=== PATIENT | male | born 1980 | race Caucasian/White ===

== ENCOUNTER 2019-01-01 13:59 | Emergency (ER) | payer SELFPAY ==
[~2019-01-01] VITALS: Ht 167.6 cm; Wt 98.9 kg
[2019-01-01 14:20] VITALS: BP 128/84
--- NOTE | 2019-01-01 14:39 | NUR ---
PATIENT AMBULATED TO BED 3
--- NOTE | 2019-01-01 14:42 | NUR ---
38M BIB SELF W/ C/O RT THROBBING WRIST PAIN 8/10 X 3 DAYS WORSE ON MOVEMENT. DECREASED WRIST ROM. TOOK 600 MG MOTRIN AT 0600 W/O RELIEF. DOES FRAMING AT WORK. DENIES INJURY. NO SWELLING NOTED. SKIN INTACT. PULSES EQUAL BILATERALLY. HX: DENIES
--- NOTE | 2019-01-01 15:04 | NUR ---
BRAYAN OLIVARES EVALUATING PATIENT AT BEDSIDE
[2019-01-01] MEDS ORDERED: KETOROLAC 30 MG/ML VIAL IM ONE (15:10)
[2019-01-01] MEDS ORDERED: DEXAMETHASONE 10 MG/ML VIAL IM ONE (15:10)
--- NOTE | 2019-01-01 15:35 | NUR ---
EMT AT BEDSIDE FOR SPLINT
--- NOTE | 2019-01-01 15:39 | NUR ---
APPLIED VELCRO WRIST SPLINT TO RIGHT WRIST WITHOUT ANY ISSUES
--- NOTE | 2019-01-01 15:43 | NUR ---
Patient discharged with v/s stable. Written and verbal after care instructions given and explained. Patient alert, oriented and verbalized understanding of instructions. Ambulatory with steady gait. All questions addressed prior to discharge. ID band removed. Patient advised to follow up with PMD. Rx of NAPROSYN AND PREDNISONE given. Patient educated on indication of medication including possible reaction and side effects. Opportunity to ask questions provided and answered.
[2019-01-01 15:45] VITALS: BP 131/78
== END 2019-01-01 15:43 | disposition home or self-care (01) ==
LOC: MED 13:59
DX: G56.01 Carpal tunnel syndrome, right upper limb (principal)
CPT/HCPCS: 29125; 96372; 99283; J1100; J1885

== ENCOUNTER 2019-04-21 22:36 | Emergency (ER) | payer MEDICAID ==
[~2019-04-21] VITALS: Ht 167.6 cm; Wt 113.4 kg
--- NOTE | 2019-04-21 22:38 | NUR ---
Pt ambulated to bed 3.
[2019-04-21 22:49] VITALS: BP 165/102
--- NOTE | 2019-04-21 22:54 | NUR ---
PATIENT LAYING IN BED, HOOKED UP TO MONITOR. VSS ON MONITOR. PATIENT ASSESSMENT COMPLETED. WILL MONITOR CLOSELY. AT BEDSIDE.
[2019-04-21] MEDS ORDERED: ASPIRIN 325 MG TAB PO ONE (23:00)
[2019-04-21] MEDS ORDERED: KETOROLAC 30 MG/ML VIAL IM ONE (23:00)
--- NOTE | 2019-04-21 23:15 | NUR ---
LAB AT BEDSIDE.
[2019-04-21 23:23] LABS: BASOPHILS % (AUTO) 0.4 % (0.0-2.0); EOSINOPHILS # (AUTO) 0.1 K/uL (0-0.4); EOSINOPHILS % (AUTO) 1.6 % (0.0-4.0); HEMOGLOBIN 13.6 g/dL (12.0-18.0); LYMPHOCYTES # (AUTO) 2.6 K/uL (2.0-11.5); LYMPHOCYTES % (AUTO) 38.9 % (20.5-51.1); MEAN CORPUSCULAR HEMOGLOBIN 31 pg (27-31); MEAN CORPUSCULAR HGB CONC 34 g/dL (33-37); MEAN CORPUSCULAR VOLUME 91.7 fL (80-94); MONOCYTES # (AUTO) 0.6 K/uL (0.8-1.0); NEUTROPHILS # (AUTO) 3.3 K/uL (1.8-7.7); NEUTROPHILS % (AUTO) 50.1 % (42.2-75.2); PLATELET COUNT (AUTO) 222 K/uL (140-450); RED BLOOD CELL COUNT(AUTO) 4.36 MIL/uL (4.20-6.10); RED CELL DISTRIBUTION WIDTH 13.1 % (11.6-13.7); WHITE BLOOD COUNT (AUTO) 6.6 K/uL (4.8-10.8)
[2019-04-21 23:55] LABS: ANION GAP 12.3 (8-16); CARBON DIOXIDE 32.3 mmol/L (21-32); POTASSIUM 3.6 mmol/L (3.5-5.1)
[2019-04-21 23:56] LABS: CREATININE 1.2 mg/dL (0.7-1.3); TOTAL BILIRUBIN 0.3 mg/dL (0.0-1.0)
[2019-04-22 00:14] LABS: CREATINE KINASE MB 2.8 ng/mL (0-3.6)
--- NOTE | 2019-04-22 00:37 | NUR ---
PATIENT AMB TO RESTROOM. PATIENT STATES PAIN HAS IMPROVED.
[2019-04-22 03:03] VITALS: BP 139/98
== END 2019-04-22 03:03 | disposition home or self-care (01) ==
LOC: MED 22:36
DX: R07.9 Chest pain, unspecified (principal)
CPT/HCPCS: 36415; 71045; 80053; 82550; 82553; 83690; 84484; 85025; 93005; 96372; 99284; J1885; Q0092

== ENCOUNTER 2019-10-12 08:38 | Emergency (ER) | payer MEDICAID ==
[~2019-10-12] VITALS: Ht 167.6 cm; Wt 104.3 kg
--- NOTE | 2019-10-12 08:40 | NUR ---
PATIENT TAKEN TO BED 7.
[2019-10-12 08:42] VITALS: BP 143/87
--- NOTE | 2019-10-12 08:50 | NUR ---
ELISE YOUNG AT BEDSIDE ASSESSING PT
--- NOTE | 2019-10-12 08:52 | NUR ---
39 yo male co right wrist pain since . according to pt, he has been here before and dxd with carpal tunnel. pt states that pain is 4/10 when he is not using it and 8/10 with movement. no swelling or bruising observed. pt states that he has also been having freq urination. pt is pre-diabetic and is not taking any rx meds at this time.
[2019-10-12] MEDS ORDERED: KETOROLAC 60 MG/2 ML VIAL IM ONE (09:00)
--- NOTE | 2019-10-12 09:04 | NUR ---
ACCUCHECK 118
[2019-10-12 09:51] VITALS: BP 137/82
== END 2019-10-12 09:47 | disposition home or self-care (01) ==
LOC: MED 08:38
DX: G56.01 Carpal tunnel syndrome, right upper limb (principal); N40.0 Benign prostatic hyperplasia without lower urinary tract symptoms
CPT/HCPCS: 29125; 81002; 82948; 96372; 99283; J1885

== ENCOUNTER 2019-11-26 10:27 | Emergency (ER) | payer MEDICAID ==
[~2019-11-26] VITALS: Ht 167.6 cm; Wt 104.3 kg
--- NOTE | 2019-11-26 10:44 | NUR ---
Pt ambulated to bed 06
[2019-11-26 10:50] VITALS: BP 141/64
--- NOTE | 2019-11-26 10:55 | NUR ---
C/O L FOOT PAIN X1 DAY. PAIN BEGAN IN L KNEE AND RADIATES DOWN TO L FOOT. PT DENIES INJURY. NO OBVIOUS DEFORMITY/SWELLING/REDNESS NOTED. CMS INTACT, < 2 SECOND CAP REFILL, DENIES NUMBNESS OR TINGLING. BED IN LOW POSITION, SIDE RAIL UP X1. PT AMBULATORY WITH CRUTCHES FROM HOME.
--- NOTE | 2019-11-26 10:56 | NUR ---
DR. SHELLEY AT BEDSIDE EVALUATING PT
[2019-11-26] MEDS ORDERED: KETOROLAC 30 MG/ML VIAL IM ONE (12:45)
[2019-11-26 12:55] VITALS: BP 136/71
--- NOTE | 2019-11-26 12:55 | NUR ---
Patient discharged with v/s stable. Written and verbal after care instructions given and explained. Patient alert, oriented and verbalized understanding of instructions. Ambulatory with steady gait. All questions addressed prior to discharge. ID band removed. Patient advised to follow up with PMD. Rx of IBUPROFEN & PREDNISONE given. Patient educated on indication of medication including possible reaction and side effects. Opportunity to ask questions provided and answered.
== END 2019-11-26 12:55 | disposition home or self-care (01) ==
LOC: MED 10:27
DX: M25.572 Pain in left ankle and joints of left foot (principal)
CPT/HCPCS: 73630; 96372; 99283; J1885

== ENCOUNTER 2020-01-23 18:05 | Emergency (ER) | payer MEDICAID ==
[~2020-01-23] VITALS: Ht 170.2 cm; Wt 96.2 kg
[2020-01-23 18:09] VITALS: BP 163/109
--- NOTE | 2020-01-23 18:11 | NUR ---
PT AMBULATED TO BED 4.
--- NOTE | 2020-01-23 18:19 | NUR ---
PT C/O LOWER ABDOMINAL PAIN AND LEFT FLANK PAIN WITH NAUSEA AND VOMITING FOR 2 DAYS. CVAT POSITIVE ON LEFT FLANK AREA. SKIN IS PINK/WARM/DRY; AAOX4 WITH EVEN AND STEADY GAIT; HR EVEN AND REGULAR; PT DENIES ANY FEVER, CP, SOB, OR COUGH AT THIS TIME; PATIENT STATES PAIN OF 10/10 AT THIS TIME; VSS; PATIENT POSITIONED FOR COMFORT; HOB ELEVATED; BEDRAILS UP X1; BED DOWN. ER MD MADE AWARE OF PT STATUS.
[2020-01-23] MEDS ORDERED: NACL 0.9% 1,000 ML IV ONE (18:39)
[2020-01-23] MEDS ORDERED: ONDANSETRON 4 MG/2 ML VIAL IVP ONE (18:40)
[2020-01-23] MEDS ORDERED: MORPHINE SULFATE 4 MG/ML SYR IVP ONE (18:40)
[2020-01-23] MEDS ORDERED: KETOROLAC 30 MG/ML VIAL IVP ONE ×2 (18:40→20:15)
--- NOTE | 2020-01-23 18:52 | NUR ---
PT HAS BEEN TAKING TO CT SCAN VIA .
[2020-01-23 19:02] LABS: BASOPHILS % (AUTO) 0.5 % (0.0-2.0); EOSINOPHILS # (AUTO) 0.1 K/uL (0-0.4); HEMATOCRIT 40.8 % (36-52); HEMOGLOBIN 13.6 g/dL (12.0-18.0); LYMPHOCYTES % (AUTO) 39.4 % (20.5-51.1); MEAN CORPUSCULAR HEMOGLOBIN 31 pg (27-31); MEAN CORPUSCULAR HGB CONC 33 g/dL (33-37); MEAN CORPUSCULAR VOLUME 92.3 fL (80-94); MONOCYTES # (AUTO) 0.7 K/uL (0.8-1.0); MONOCYTES % (AUTO) 8.8 % (1.7-9.3); NEUTROPHILS # (AUTO) 3.9 K/uL (1.8-7.7); NEUTROPHILS % (AUTO) 50.3 % (42.2-75.2); PLATELET COUNT (AUTO) 231 K/uL (140-450); RED BLOOD CELL COUNT(AUTO) 4.42 MIL/uL (4.20-6.10); RED CELL DISTRIBUTION WIDTH 13.2 % (11.6-13.7); WHITE BLOOD COUNT (AUTO) 7.7 K/uL (4.8-10.8)
[2020-01-23 19:04] LABS: APPEARANCE,URINE CLEAR (CLEAR); BILIRUBIN,URINE NEGATIVE (NEGATIVE); BLOOD, URINE 2+ (NEGATIVE); COLOR,URINE YELLOW (YELLOW); LEUKOCYTE ESTERASE ,URINE NEGATIVE (NEGATIVE); NITRITE, URINE NEGATIVE (NEGATIVE); PH,URINE 5.5 (5.0-9.0); UGLUCOSE NEGATIVE (NEGATIVE)
--- NOTE | 2020-01-23 19:13 | NUR ---
PT REQUESTING MORE COMFORTABLY AT THIS TIME, STATES PAIN LEVELIS GOOD 4/10. PT REMAINS ON BEDSIDE MONITOR.
--- NOTE | 2020-01-23 19:13 | NUR ---
REPORT RECEIVED FROM NERIS ROLLE
--- NOTE | 2020-01-23 19:13 | NUR ---
REPORT GAVE TO AQUILINO MAGANA.
--- NOTE | 2020-01-23 19:14 | NUR ---
MD LOZOYA NOTIFIED OF BLOOD PRESSURE OF 149/101. NO NEW ORDERS RECEIVED
[2020-01-23 19:25] LABS: ALBUMIN 4.4 g/dL (3.4-5.0); ANION GAP 16.1 (8-16); CREATININE 1.4 mg/dL (0.6-1.3); POTASSIUM 3.1 mmol/L (3.5-5.1); TOTAL BILIRUBIN 0.3 mg/dL (0.0-1.0)
[2020-01-23 19:27] LABS: RBC,URINE 11-20 (MOD) /HPF (0-5); WBC,URINE NONE SEEN /HPF (0-5)
[2020-01-23] MEDS ORDERED: POTASSIUM CHLORIDE 10 MEQ TABER PO ONE (19:45)
--- NOTE | 2020-01-23 20:09 | NUR ---
MD LOZOYA AT BEDSIDE
[2020-01-23] MEDS ORDERED: HYDROcodone/APAP 5/325 MG 1 TAB TAB PO ONE (20:15)
--- NOTE | 2020-01-23 20:30 | NUR ---
Patient discharged with v/s stable. Written and verbal after care instructions given and explained. Patient alert, oriented and verbalized understanding of instructions. Ambulatory with steady gait. All questions addressed prior to discharge. ID band removed. Patient advised to follow up with PMD. Rx of NORCO, NAPRASYN, FLOMAX given. Patient educated on indication of medication including possible reaction and side effects. Opportunity to ask questions provided and answered.
[2020-01-23 20:42] VITALS: BP 154/101
== END 2020-01-23 20:30 | disposition home or self-care (01) ==
LOC: MED 18:05
DX: N20.1 Calculus of ureter (principal); E87.6 Hypokalemia; E11.9 Type 2 diabetes mellitus without complications
CPT/HCPCS: 36415; 74176; 80053; 81001; 83690; 85025; 96361; 96374; 96375; 96376; 99284; J1885; J2270; J2405; J7030

== ENCOUNTER 2021-03-27 07:27 | Emergency (ER) | payer MEDICAID ==
[~2021-03-27] VITALS: Ht 167.6 cm; Wt 99.8 kg
[2021-03-27 07:29] VITALS: BP 156/91
--- NOTE | 2021-03-27 07:35 | NUR ---
Patient ambulated to bed 07 with steady/even gait.
--- NOTE | 2021-03-27 07:35 | NUR ---
40 y/o M BIB self c/o low back pain x 3 days. Patient A&Ox4, ambulatory, states at work he bent down to grab wood supplies, stood back up and felt pain to low back. Patient reports 8/10, pressure/intermittent, non-radiating pain that worsens when sitting or straining during bowel movements. Pt reports standing and ambulating lessens pain. Denies abdominal pain, dysuria, urinary symptoms, numbness/tingling, loss of sensation. States last BM today normal. Denies meds prior to arrival. Bed locked in lowest position, side rails x 1, call light in reach. PMH/Meds/Sx: Denies NKA
--- NOTE | 2021-03-27 07:57 | NUR ---
Dr. Erickson at bedside evaluating patient.
[2021-03-27] MEDS ORDERED: KETOROLAC 60 MG/2 ML VIAL IM ONE (08:05)
--- NOTE | 2021-03-27 08:12 | NUR ---
Patient transported to [facility] by WC
--- NOTE | 2021-03-27 08:24 | NUR ---
Pt returned from RAD by WC.
--- NOTE | 2021-03-27 08:32 | NUR ---
Patient states + relief to low back pain; rates pain 7/10 at this time. All pt needs met.
[2021-03-27] MEDS ORDERED: CYCL-711 PO (09:14)
[2021-03-27] MEDS ORDERED: NAPR-54 PO (09:14)
--- NOTE | 2021-03-27 09:17 | NUR ---
Patient discharged with v/s stable. Written and verbal after care instructions given and explained. Patient alert, oriented and verbalized understanding of instructions. Ambulatory with steady gait. All questions addressed prior to discharge. ID band removed. Patient advised to follow up with PMD. Rx of Naproxen, Flexeril given. Patient educated on indication of medication including possible reaction and side effects. Opportunity to ask questions provided and answered.
== END 2021-03-27 09:17 | disposition home or self-care (01) ==
LOC: MED 07:27
DX: M54.50 Low back pain, unspecified (principal); E11.9 Type 2 diabetes mellitus without complications; Z79.899 Other long term (current) drug therapy; Z79.1 Long term (current) use of non-steroidal anti-inflammatories (NSAID)
CPT/HCPCS: 72100; 96372; 99283; J1885

== ENCOUNTER 2021-04-01 16:30 | Emergency (ER) | payer MEDICAID ==
[~2021-04-01] VITALS: Ht 167.6 cm; Wt 104.3 kg
[~2021-04-01 16:30] MED LIST: CYCL-711 PO; NAPR-54 PO
[2021-04-01 16:40] VITALS: BP 177/96
--- NOTE | 2021-04-01 16:44 | NUR ---
PT AMBULATED TO BED
--- NOTE | 2021-04-01 17:02 | NUR ---
40 Y/O MALE C/O LOW BACK PAIN 01/14 DESCRIBES SHARP NON-RADIATING X1WEEK. PT STATES HE WAS RECENTLY SEEN IN ER X1WEEK AND PRESCRIBED NAPROXEN AND FLEXERIL WITH NO RELIEF. DENIES ANY RECENT INJURY OR FALL. DENIES FEVER/CHILLS. DENIES N/V/D. DENIES PMH NKA
--- NOTE | 2021-04-01 17:09 | NUR ---
ELISE RICHARDSONTO AT PT BEDSIDE FOR FURTHER EVALUATION.
[2021-04-01] MEDS ORDERED: KETOROLAC 30 MG/ML VIAL IM ONE (17:15)
[2021-04-01] MEDS ORDERED: HYDROcodone/APAP 5/325 MG 1 TAB TAB PO ONE (17:15)
[2021-04-01] MEDS ORDERED: IBUP-2213 PO (18:09)
[2021-04-01] MEDS ORDERED: METH4TAB27 PO (18:09)
[2021-04-01] MEDS ORDERED: ACET-8386 PO (18:09)
[2021-04-01 18:15] VITALS: BP 177/96
--- NOTE | 2021-04-01 18:16 | NUR ---
Patient discharged with v/s stable. Written and verbal after care instructions given LOW BACK SPRAIN OR STRAIN REHAB and explained. Patient alert, oriented and verbalized understanding of instructions. Ambulatory with steady gait. All questions addressed prior to discharge. ID band removed. Patient advised to follow up with PMD. Rx of NORCO, IBUPROFEN, AND METHYLPRED-DP given. Patient educated on indication of medication including possible reaction and side effects. Opportunity to ask questions provided and answered.
== END 2021-04-01 18:16 | disposition home or self-care (01) ==
LOC: MED 16:30
DX: S39.012A Strain of muscle, fascia and tendon of lower back, initial encounter (principal); M54.10 Radiculopathy, site unspecified; R03.0 Elevated blood-pressure reading, without diagnosis of hypertension; Z79.899 Other long term (current) drug therapy; X58.XXXA Exposure to other specified factors, initial encounter; Y93.89 Activity, other specified; Y92.89 Other specified places as the place of occurrence of the external cause; Y99.8 Other external cause status
CPT/HCPCS: 81002; 96372; 99283; J1885

== ENCOUNTER 2021-07-10 18:11 | Emergency (ER) | payer MEDICAID ==
[~2021-07-10] VITALS: Ht 170.2 cm; Wt 101.6 kg
[~2021-07-10 18:11] MED LIST changes: +ACET-8386 PO; +IBUP-2213 PO; +METH4TAB27 PO
[2021-07-10 18:13] VITALS: BP 136/99
--- NOTE | 2021-07-10 18:16 | NUR ---
PT AMBULATED TO ER BED 8 WITH A STEADY GAIT.
--- NOTE | 2021-07-10 18:31 | NUR ---
PA TILLMAN AT BEDSIDE EVALUATING PT
[2021-07-10] MEDS ORDERED: KETOROLAC 30 MG/ML VIAL IM ONE (18:40)
--- NOTE | 2021-07-10 18:41 | NUR ---
41 Y/O M C/O SHARP R WRIST PAIN 10/10 FOR 2 DAYS THAT RADIATES TO HIS FINGERS. ALSO C/O R HAND FINGER NUMBNESS. PT HAD HX OF CARPAL TUNNEL. NKA. DENIES TRAUMA.
[2021-07-10] MEDS ORDERED: IBUP-2213 PO (18:48)
--- NOTE | 2021-07-10 19:23 | NUR ---
REPORT GIVEN TO ASMITA ROLLE.
[2021-07-10] MEDS ORDERED: TRAM50TA1 PO (19:30)
[2021-07-10 19:54] VITALS: BP 136/99
--- NOTE | 2021-07-10 19:54 | NUR ---
Patient discharged with v/s stable. Written and verbal after care instructions given and explained. Patient verbalized understanding. Ambulatory with steady gait. All questions addressed prior to discharge. Advised to follow up with PMD.
== END 2021-07-10 19:54 | disposition home or self-care (01) ==
LOC: MED 18:11
DX: M25.531 Pain in right wrist (principal); G89.29 Other chronic pain; R03.0 Elevated blood-pressure reading, without diagnosis of hypertension; Z79.899 Other long term (current) drug therapy
CPT/HCPCS: 29125; 96372; 99283; J1885

== ENCOUNTER 2021-07-18 20:14 | Emergency (ER) | payer MEDICAID ==
[~2021-07-18] VITALS: Ht 167.6 cm; Wt 103.9 kg
[~2021-07-18 20:14] MED LIST changes: +TRAM50TA1 PO
[2021-07-18 20:27] VITALS: BP 158/109
--- NOTE | 2021-07-18 20:30 | NUR ---
PT WALKED TO LOBBY
[2021-07-18] MEDS: KETOROLAC 30 MG/ML VIAL IM ONE (22:01)
[2021-07-18 22:44] VITALS: BP 158/109
== END 2021-07-18 22:47 | disposition home or self-care (01) ==
LOC: MED 20:14
DX: M25.531 Pain in right wrist (principal); G89.29 Other chronic pain
CPT/HCPCS: 96372; 99283; J1885

== ENCOUNTER 2022-02-19 10:05 | Emergency (ER) | payer MEDICAID ==
[~2022-02-19] VITALS: Ht 167.6 cm; Wt 104.8 kg
[2022-02-19 10:48] VITALS: BP 161/110
--- NOTE | 2022-02-19 10:53 | NUR ---
PT TO [facility]
[2022-02-19] MEDS ORDERED: IBUPROFEN 800 MG TAB PO ONE (12:35)
--- NOTE | 2022-02-19 12:46 | NUR ---
VELCRO THUMB SPICA APPLIED TO R THUMB/ HAND. + CMS. PT TOLERATED SPLINT. Addendum: 02/19/22 at 1256 by MEDFR SPLINT CHANGE TO VOLAR VELCRO APPLIED TO R WRIST. PT TOLERATED SPLINT. + CMS
[2022-02-19] MEDS ORDERED: KETOROLAC 30 MG/ML VIAL IM ONE (12:55)
[2022-02-19] MEDS ORDERED: IBUP-2218 PO (13:02)
[2022-02-19 13:19] VITALS: BP 161/110
== END 2022-02-19 13:19 | disposition home or self-care (01) ==
LOC: MED 10:05
DX: G56.01 Carpal tunnel syndrome, right upper limb (principal)
CPT/HCPCS: 29125; 73110; 96372; 99283; J1885

== ENCOUNTER 2022-04-12 08:05 | Emergency (ER) | payer MEDICAID ==
[~2022-04-12] VITALS: Ht 167.6 cm; Wt 108.0 kg
[~2022-04-12 08:05] MED LIST changes: +IBUP-2218 PO; +TRAM-748 PO; -TRAM50TA1 PO
[2022-04-12 08:09] VITALS: BP 153/110
[2022-04-12] MEDS ORDERED: IBUPROFEN 800 MG TAB PO ONE (08:25)
[2022-04-12] MEDS ORDERED: DOXY-690 PO (08:56)
[2022-04-12] MEDS ORDERED: NAPR-54 PO (08:56)
== END 2022-04-12 09:08 | disposition home or self-care (01) ==
LOC: MED 08:05
DX: L03.115 Cellulitis of right lower limb (principal); Z79.1 Long term (current) use of non-steroidal anti-inflammatories (NSAID); Z79.2 Long term (current) use of antibiotics; Z79.891 Long term (current) use of opiate analgesic; Z79.899 Other long term (current) drug therapy
CPT/HCPCS: 73630; 99283

== ENCOUNTER 2022-06-03 07:09 | Emergency (ER) | payer MEDICAID ==
[~2022-06-03] VITALS: Ht 172.7 cm; Wt 106.1 kg
[~2022-06-03 07:09] MED LIST changes: -ACET-8386 PO; +ACET-8905 PO; +DOXY-690 PO
[2022-06-03 07:28] VITALS: BP 146/95
[2022-06-03 08:05] LABS: BASOPHILS % (AUTO) 0.5 % (0.0-2.0); EOSINOPHILS # (AUTO) 0.2 K/uL (0-0.4); EOSINOPHILS % (AUTO) 2.9 % (0.0-4.0); HEMATOCRIT 40.3 % (36-52); HEMOGLOBIN 13.4 g/dL (12.0-18.0); LYMPHOCYTES # (AUTO) 1.5 K/uL (2.0-11.5); MEAN CORPUSCULAR HEMOGLOBIN 30 pg (27-31); MEAN CORPUSCULAR HGB CONC 33 g/dL (33-37); MEAN CORPUSCULAR VOLUME 90.3 fL (80-94); MONOCYTES # (AUTO) 0.7 K/uL (0.8-1.0); MONOCYTES % (AUTO) 11.3 % (1.7-9.3); NEUTROPHILS # (AUTO) 3.5 K/uL (1.8-7.7); NEUTROPHILS % (AUTO) 59.3 % (42.2-75.2); PLATELET COUNT (AUTO) 213 K/uL (140-450); RED BLOOD CELL COUNT(AUTO) 4.47 MIL/uL (4.20-6.10); RED CELL DISTRIBUTION WIDTH 13.7 % (11.6-13.7); WHITE BLOOD COUNT (AUTO) 5.8 K/uL (4.8-10.8)
--- NOTE | 2022-06-03 08:05 | NUR ---
42/M PRESENTS TO ED WITH C/O COUGH, SORE THROAT AND CP X1 MONTH, STATES HE WAS SEEN BY HIS PCP AND GIVEN RX OF COUGH MEDS 2 WEEKS AGO WITH NO RELIEF. DENIES FEVERS, SOB OR RECENT SICK CONTACTS.
[2022-06-03 08:18] LABS: ALBUMIN 4.1 g/dL (3.4-5.0); ANION GAP 11.2 (8-16); CARBON DIOXIDE 28.1 mmol/L (21-32); POTASSIUM 3.3 mmol/L (3.5-5.1); TOTAL BILIRUBIN 0.5 mg/dL (0.0-1.0)
[2022-06-03] MEDS ORDERED: BENZ150C2 PO (08:46)
[2022-06-03] MEDS ORDERED: AMOX500C25 PO (08:46)
[2022-06-03] MEDS ORDERED: IBUP-2213 PO (08:46)
--- NOTE | 2022-06-03 08:50 | NUR ---
Patient discharged with v/s stable. Written and verbal after care instructions ABOUT COUGH given and explained. Patient alert, oriented and verbalized understanding of instructions. Ambulatory with steady gait. All questions addressed prior to discharge. ID band removed. Patient advised to follow up with PMD. Rx of AMOXICILLIN, BENZONATATE, IBUPROFEN given. Patient educated on indication of medication including possible reaction and side effects. Opportunity to ask questions provided and answered.
== END 2022-06-03 08:50 | disposition home or self-care (01) ==
LOC: MED 07:09
DX: J20.9 Acute bronchitis, unspecified (principal)
CPT/HCPCS: 36415; 71046; 80053; 83880; 84484; 85025; 99285

== ENCOUNTER 2022-07-13 19:48 | Emergency (ER) | payer MEDICAID ==
[~2022-07-13] VITALS: Ht 167.6 cm; Wt 105.7 kg
[~2022-07-13 19:48] MED LIST changes: +AMOX500C25 PO; +BENZ150C2 PO
[2022-07-13 20:20] VITALS: BP 149/90
--- NOTE | 2022-07-13 20:23 | NUR ---
TO LOBBY A/W BED AMBULATORY
--- NOTE | 2022-07-13 22:22 | NUR ---
PT TO 1
[2022-07-13] MEDS ORDERED: NAPR-54 PO (22:45)
[2022-07-13] MEDS ORDERED: KETOROLAC 30 MG/ML VIAL IM ONE (22:45)
--- NOTE | 2022-07-13 23:05 | NUR ---
Patient discharged with v/s stable. Written and verbal after care instructions given and explained. Patient alert, oriented and verbalized understanding of instructions. Ambulatory with steady gait. All questions addressed prior to discharge. ID band removed. Patient advised to follow up with PMD. Rx of NAPROXEN given. Opportunity to ask questions provided and answered.
== END 2022-07-13 23:05 | disposition home or self-care (01) ==
LOC: MED 19:48
DX: M65.4 Radial styloid tenosynovitis [de Quervain] (principal); I10 Essential (primary) hypertension; Z79.899 Other long term (current) drug therapy
CPT/HCPCS: 29125; 73130; 96372; 99283; J1885

== ENCOUNTER 2022-07-19 19:19 | Emergency (ER) | payer MEDICAID ==
[~2022-07-19] VITALS: Ht 167.6 cm; Wt 105.7 kg
[2022-07-19 19:42] VITALS: BP 152/90
--- NOTE | 2022-07-19 22:05 | NUR ---
Dr. Gordon examining patient.
[2022-07-19] MEDS ORDERED: IBUPROFEN 600 MG TAB PO ONE (22:10)
--- NOTE | 2022-07-19 22:14 | NUR ---
urine sample collected and sent to lab
[2022-07-19 22:31] LABS: BASOPHILS # (AUTO) 0.1 K/uL (0.00-0.22); BASOPHILS % (AUTO) 0.8 % (0.0-2.0); EOSINOPHILS # (AUTO) 0.2 K/uL (0-0.4); EOSINOPHILS % (AUTO) 2.1 % (0.0-4.0); HEMATOCRIT 40.4 % (36-52); HEMOGLOBIN 13.4 g/dL (12.0-18.0); LYMPHOCYTES # (AUTO) 2.6 K/uL (2.0-11.5); LYMPHOCYTES % (AUTO) 34.8 % (20.5-51.1); MEAN CORPUSCULAR HEMOGLOBIN 31 pg (27-31); MEAN CORPUSCULAR HGB CONC 33 g/dL (33-37); MEAN CORPUSCULAR VOLUME 91.9 fL (80-94); MONOCYTES # (AUTO) 0.7 K/uL (0.8-1.0); NEUTROPHILS # (AUTO) 3.8 K/uL (1.8-7.7); NEUTROPHILS % (AUTO) 52.3 % (42.2-75.2); PLATELET COUNT (AUTO) 242 K/uL (140-450); RED BLOOD CELL COUNT(AUTO) 4.39 MIL/uL (4.20-6.10); WHITE BLOOD COUNT (AUTO) 7.4 K/uL (4.8-10.8)
[2022-07-19 23:07] LABS: APPEARANCE,URINE CLEAR (CLEAR); BILIRUBIN,URINE NEGATIVE (NEGATIVE); BLOOD, URINE NEGATIVE (NEGATIVE); COLOR,URINE YELLOW (YELLOW); LEUKOCYTE ESTERASE ,URINE NEGATIVE (NEGATIVE); NITRITE, URINE NEGATIVE (NEGATIVE); PH,URINE 6.5 (5.0-9.0); UGLUCOSE NEGATIVE (NEGATIVE)
[2022-07-19 23:10] LABS: ALBUMIN 4.1 g/dL (3.4-5.0); ANION GAP 9.7 (8-16); CARBON DIOXIDE 30.7 mmol/L (21-32); CREATININE 0.9 mg/dL (0.6-1.3); POTASSIUM 3.4 mmol/L (3.5-5.1); TOTAL BILIRUBIN 0.1 mg/dL (0.0-1.0)
[2022-07-19] MEDS ORDERED: METH-1691 PO (23:22)
[2022-07-19] MEDS ORDERED: IBUP-2213 PO (23:22)
[2022-07-19 23:40] VITALS: BP 142/90
--- NOTE | 2022-07-19 23:40 | NUR ---
Patient discharged with v/s stable. Written and verbal after care instructions given and explained via canteen attendant (#[id number]). Patient alert, oriented and verbalized understanding of instructions. Ambulatory with steady gait. All questions addressed prior to discharge. ID band removed. Patient advised to follow up with PMD. Rx of Ibuprofen and Methocarbamol given. Patient educated on indication of medication including possible reaction and side effects. Opportunity to ask questions provided and answered.
== END 2022-07-19 23:04 | disposition home or self-care (01) ==
LOC: MED 19:19
DX: S39.011A Strain of muscle, fascia and tendon of abdomen, initial encounter (principal); I10 Essential (primary) hypertension; E11.9 Type 2 diabetes mellitus without complications; Z79.899 Other long term (current) drug therapy; Z79.1 Long term (current) use of non-steroidal anti-inflammatories (NSAID); Z79.2 Long term (current) use of antibiotics; Z79.891 Long term (current) use of opiate analgesic; X58.XXXA Exposure to other specified factors, initial encounter; Y92.89 Other specified places as the place of occurrence of the external cause; Y93.89 Activity, other specified; Y99.8 Other external cause status
CPT/HCPCS: 36415; 80053; 81003; 83690; 85025; 99284

== ENCOUNTER 2022-11-22 15:26 | Emergency (ER) | payer MEDICAID ==
[~2022-11-22] VITALS: Ht 167.6 cm; Wt 105.7 kg
[~2022-11-22 15:26] MED LIST changes: +METH-1691 PO
[2022-11-22 15:59] VITALS: BP 152/86; PULSE 74; RESP 20; TEMP 98; O2SAT 99
[2022-11-22] MEDS ORDERED: KETOROLAC 30 MG/ML VIAL IM ONE (16:35)
--- NOTE | 2022-11-22 17:12 | NUR ---
rayray wrap x 1 to r knee
[2022-11-22] MEDS ORDERED: NAPR-1704 PO (17:22)
== END 2022-11-22 17:32 | disposition home or self-care (01) ==
LOC: MED 15:26
DX: M70.51 Other bursitis of knee, right knee (principal); I10 Essential (primary) hypertension; E11.9 Type 2 diabetes mellitus without complications; Z79.899 Other long term (current) drug therapy; Z79.1 Long term (current) use of non-steroidal anti-inflammatories (NSAID); Z79.2 Long term (current) use of antibiotics
CPT/HCPCS: 73562; 96372; 99283; J1885

== ENCOUNTER 2022-12-28 16:43 | Emergency (ER) | payer MEDICAID ==
[~2022-12-28] VITALS: Ht 177.8 cm; Wt 95.3 kg
[~2022-12-28 16:43] MED LIST changes: +NAPR-1704 PO
[2022-12-28 17:16] VITALS: BP 145/65; PULSE 72; RESP 18; TEMP 97.7; O2SAT 96
[2022-12-28] MEDS ORDERED: IBUPROFEN 800 MG TAB PO ONE (18:00)
[2022-12-28] MEDS ORDERED: IBUP-2213 PO (19:03)
[2022-12-28 19:51] VITALS: BP 145/65; PULSE 72; RESP 18; TEMP 97.7; O2SAT 96
== END 2022-12-28 19:51 | disposition home or self-care (01) ==
LOC: MED 16:43
DX: S93.402A Sprain of unspecified ligament of left ankle, initial encounter (principal); I10 Essential (primary) hypertension; Z79.899 Other long term (current) drug therapy; W22.8XXA Striking against or struck by other objects, initial encounter; Y93.89 Activity, other specified; Y92.098 Other place in other non-institutional residence as the place of occurrence of the external cause; Y99.8 Other external cause status
CPT/HCPCS: 73610; 73630; 99284

== ENCOUNTER 2023-03-07 16:13 | Emergency (ER) | payer MEDICAID ==
[~2023-03-07] VITALS: Ht 167.6 cm; Wt 101.7 kg
[2023-03-07 16:23] VITALS: BP 115/79; PULSE 77; RESP 19; TEMP 97.8; O2SAT 99
[2023-03-07] MEDS ORDERED: IBUPROFEN 600 MG TAB PO ONE (17:55)
[2023-03-07] MEDS ORDERED: PROM118S5 PO (18:01)
[2023-03-07] MEDS ORDERED: BENZ-300 PO (18:01)
[2023-03-07] MEDS ORDERED: IBUP-2213 PO (18:01)
[2023-03-07 18:26] VITALS: BP 115/79; PULSE 77; RESP 19; TEMP 97.8; O2SAT 99
== END 2023-03-07 18:26 | disposition home or self-care (01) ==
LOC: MED 16:13
DX: J04.0 Acute laryngitis (principal); J02.9 Acute pharyngitis, unspecified; E11.9 Type 2 diabetes mellitus without complications; I10 Essential (primary) hypertension; Z79.899 Other long term (current) drug therapy; Z79.1 Long term (current) use of non-steroidal anti-inflammatories (NSAID); Z79.2 Long term (current) use of antibiotics
CPT/HCPCS: 99283

== ENCOUNTER 2024-02-08 11:27 | Emergency (ER) | payer MEDICAID, OTHER ==
[~2024-02-08] VITALS: Ht 167.6 cm; Wt 107.0 kg
[~2024-02-08 11:27] MED LIST changes: +BENZ-300 PO; -BENZ150C2 PO; +BENZ150C7 PO; +NAPR-337 PO; -NAPR-54 PO; +PROM118S5 PO
[2024-02-08 11:40] VITALS: BP 106/63; PULSE 57; RESP 16; TEMP 97.7; O2SAT 97
[2024-02-08] MEDS ORDERED: DICL20GE TP (13:27)
[2024-02-08] MEDS ORDERED: NAPR-337 PO (13:27)
[2024-02-08] MEDS: KETOROLAC 30 MG/ML VIAL IM ONE (13:33)
[2024-02-08 13:50] VITALS: BP 118/65; PULSE 52; RESP 16; TEMP 36.50292; O2SAT 97
== END 2024-02-08 13:50 | disposition home or self-care (01) ==
LOC: MED 11:27
DX: S63.501A Unspecified sprain of right wrist, initial encounter (principal); I10 Essential (primary) hypertension; Z79.899 Other long term (current) drug therapy; X58.XXXA Exposure to other specified factors, initial encounter; Y92.89 Other specified places as the place of occurrence of the external cause; Y93.89 Activity, other specified; Y99.8 Other external cause status
CPT/HCPCS: 29125; 73110; 96372; 99283; J1885; 29260